=== PATIENT | male | born 1960 | race Caucasian/White ===

== ENCOUNTER 2018-02-16 22:04 | Emergency (ER) | payer OTHER ==
[~2018-02-16 22:04] MED LIST: CLINDAMYCIN HY300 MG PO; CLONAZEPAM0.5 MG PO; COLESTID1 G1 PO; ESCITALOPRAM OX10 MG PO; FLAGYL500 MG PO; FLU VACCINE 0.0.5 ML IM; LOMOTIL 0.025 M1 TAB PO; NAPROXEN500 MG PO; OCTREOTIDE 100 MCG/ML INJ; TOPAMAX50 M1 PO; TRILEPTAL300 M1 PO
[2018-02-16 22:09] VITALS: BP 129/88
--- NOTE | 2018-02-16 23:56 | ED GENERAL ADULT ---
History of Present Illness General Chief Complaint: General Adult Stated Complaint: NEEDS COLOSTOMY BAG CHANGED Source: patient Exam Limitations: no limitations Vital Signs & Intake/Output Vital Signs & Intake/Output Vital Signs Date Time Temp Pulse Resp B/P B/P Pulse O2 O2 Flow FiO2 Mean Ox Delivery Rate 02/16 2209 98.2 96 17 129/88 99 Room Air Allergies Coded Allergies: Penicillins (Severe, HIVES AND SOB 05/14/16) aspirin (From PERCODAN) (MAKES HIM FEEL EXTREMELY ITCHY. 05/13/16) oxycodone (From PERCODAN) (MAKES HIM FEEL EXTREMELY ITCHY. 05/13/16) Reconcile Medications Clonazepam 0.5 MG TABLET 1 TAB PO TID SEIZURES (Reported) Colestipol HCl (Colestid) 1 GRAM TABLET 3 TAB PO BID DIARRHEA (Reported) DIPHENOXYLATE HCL/ATROPINE (Lomotil 2.5-0.025 MG Tablet) 2.5 MG-0.025 MG TABLET 1-2 TAB PO NEEDED PRN DIARRHEA (Reported) Escitalopram Oxalate 10 MG TABLET 0.5 TAB PO DAILY DEPRESSION (Reported) Metronidazole (Flagyl) 500 MG TABLET 1 TAB PO TID BOWELS (Reported) Oxcarbazepine (Trileptal) 300 MG TABLET 2 TAB PO BID EPILEPSY (Reported) Topiramate (Topamax) 50 MG TABLET 2 TAB PO BID SEIZURES (Reported) Triage Note: PT TO ED WITH MULTIPLE COMPLAINTS. STATES JUST BROKE UP WITH WHO WAS CHANGING HIS COLOSTOMY BAG FOR HIM FOR THE PAST TWO YEARS. STATES BAG IS LEAKING AND HE CANNOT CHANGE IT. STATES, "I THINK IM HAVING A BREAKDOWN FROM IT ALL." TEARFUL AT TRIAGE. ALSO REPORTS RECENT STENT PLACEMENT AND "JUST WALKING IN MADE ME SHORT OF BREATH." DENIES CP. STATES, "I ALSO HAVE EPILEPSY" AND "I MIGHT NOT HAVE A PLACE TO STAY NOW." Triage Nurses Notes Reviewed? yes HPI: -year-old male comes in with colostomy difficulties. States that he just broke up with his who was maintaining his colostomy he is not to change it. No other complaints. Past History Travel History Traveled to [place] past 21 day No Medical History Any Pertinent Medical History? see below for history Neurological: EPILEPSY Gastrointestinal: COLOSTOMY Renal: BORN WITH ONE KIDNEY History of MRSA: No History of VRE: No History of CDIFF: No Influenza Vaccine: 03/22/14 Surgical History Surgical History: colon resection Psychosocial History Who do you live with Spouse Services at Home None What is your primary language Slovak Tobacco Use: Never used Family History Hx Contributory? No Review of Systems Review of Systems Constitutional: Reports: no symptoms, see HPI. EENTM: Reports: no symptoms. Respiratory: Reports: no symptoms. Cardiovascular: Reports: no symptoms. GI: Reports: no symptoms. Genitourinary: Reports: no symptoms. Musculoskeletal: Reports: no symptoms. Skin: Reports: no symptoms. Neurological/Psychological: Reports: no symptoms. Hematologic/Endocrine: Reports: no symptoms. Immunologic/Allergic: Reports: no symptoms. All Other Systems: Reviewed and Negative Physical Exam Physical Exam General Appearance: no apparent distress, comfortable Comments: Gen.: Well-nourished, well-developed, no acute respiratory distress. Head: Normocephalic, atraumatic. Eyes: Normal inspection bilaterally Ears: Normal inspection bilaterally Nose: Normal inspection Throat/mouth : Moist mucosa Neck: Supple, full range of motion, no goiter Heart: Regular rate and rhythm, no murmurs rubs or gallops Lungs: Clear to auscultation bilaterally with normal air entry Chest: Nontender Back: Normal range of motion Abdomen: Soft, nontender, nondistended. Stoma right lower abdomen. Extremities: Normal range of motion grossly, equal radial pulses, no cyanosis clubbing or edema Neurologic: Cranial nerves grossly intact, speech is clear Skin: warm and dry Psychiatric: Calm, cooperative, no apparent delusions or hallucinations Core Measures ACS in differential dx? No CVA/TIA Diagnosis: No Sepsis Present: No Sepsis Focused Exam Completed? No Progress Differential Diagnoses I considered the following diagnoses in my evaluation of the patient: Colostomy difficulties Plan of Care: Laboratory and imaging evaluation not indicated at this time. Pre-Hospital EKG: none Initial ED EKG: none Comments: Patient was taught colostomy care by nursing staff. Departure Departure Disposition: HOME OR SELF CARE Condition: Stable Clinical Impression Primary Impression: Colostomy care Referrals: Matthew CHOE,Laci Smiley (PCP/Family) Departure Forms: Customer Survey General Discharge Information Comments Please note that there might be incidental findings in your evaluation that are unrelated to the current emergency department visit. Please notify your primary care doctor about this emergency department visit in order to obtain and review all of the testing performed so that these incidental findings can be monitored as needed. If you had an x-ray performed, please understand that some fractures may not be seen on the initial set of x-rays. If your symptoms persist you might need a repeat set of x-rays to check for such a fracture. If you had a laceration evaluated, please understand that foreign bodies such as glass or wood may not be visible to the naked eye or on plain x-rays. If the wound becomes red, swollen, increasingly more painful or if there is any drainage from the wound, please have it reevaluated by a physician for the possibility of a retained foreign body. If you're unable to follow up as outlined in the discharge instructions please return to the emergency department. Critical Care Note Critical Care Note Critical Care Time: non-applicable
== END 2018-02-17 00:25 ==
LOC: ERH 22:04
DX: Z43.3 Encounter for attention to colostomy (principal)

== ENCOUNTER 2018-03-01 09:19 | Emergency (ER) | payer OTHER ==
[~2018-03-01] VITALS: Ht 177.8 cm; Wt 83.9 kg
[2018-03-01] MEDS ORDERED: OXCARBAZEP300 MG/52 PO ×2 (13:04→13:05)
[2018-03-01] MEDS ORDERED: WARFARIN SODIUM3 M1 PO (13:05)
[2018-03-01] MEDS ORDERED: VENLAFAXINE HCL75 M1 PO (13:06)
[2018-03-01] MEDS ORDERED: TERBINAFINE HC250 MG PO (13:06)
[2018-03-01] MEDS ORDERED: METOPROLOL TART25 M1 PO (13:07)
[2018-03-01] MEDS ORDERED: CLONAZEPAM1 M2 PO (13:10)
--- NOTE | 2018-03-01 13:40 | ED GENERAL ADULT ---
See Addendum History of Present Illness General Chief Complaint: General Adult Stated Complaint: "IM GOING TO HAVE A BREAK DOWN" Source: patient Exam Limitations: no limitations Vital Signs & Intake/Output Vital Signs & Intake/Output Vital Signs Date Time Temp Pulse Resp B/P B/P Pulse O2 O2 Flow FiO2 Mean Ox Delivery Rate 03/01 1555 98.8 64 18 120/70 97 03/01 1413 98.2 80 17 124/70 98 Room Air Room Air 03/01 1401 98 Room Air Room Air 03/01 0944 96.0 70 20 118/82 98 Room Air Allergies Coded Allergies: Penicillins (Severe, HIVES AND SOB 05/14/16) aspirin (From PERCODAN) (MAKES HIM FEEL EXTREMELY ITCHY. 05/13/16) oxycodone (From PERCODAN) (MAKES HIM FEEL EXTREMELY ITCHY. 05/13/16) Reconcile Medications Clonazepam 1 MG TABLET 0.5 TAB PO TID ANXIETY (Reported) Metoprolol Tartrate 25 MG TABLET 1 TAB PO DAILY HEART (Reported) Oxcarbazepine (OXcarbazepine) 300 MG/5 ML (60 MG/ML) ORAL.SUSP 10 ML PO DAILY SEIZURES (Reported) Oxcarbazepine (OXcarbazepine) 300 MG/5 ML (60 MG/ML) ORAL.SUSP 15 ML PO QPM SEIZURES (Reported) Terbinafine HCl 250 MG TABLET 1 TAB PO DAILY UNKNOWN (Reported) Topiramate (Topamax) 50 MG TABLET 2 TAB PO BID SEIZURES (Reported) Venlafaxine HCl (Venlafaxine HCl ER) 75 MG CAP.ER.24H 1 CAP PO DAILY MENTAL HEALTH (Reported) Warfarin Sodium 3 MG TABLET 1 TAB PO 1700 BLOOD THINNER (Reported) Triage Note: PT TO ED STATING "I'M GOING TO HAVE A NERVOUS BREAKDOWN". PT STATES HE IS HOMELESS AND NEEDS VISITING NURSES TO HELP WITH COLOSTOMY BAG. DENIES SI/HI. "I GUESS I NEED HELP". Triage Nurses Notes Reviewed? yes HPI: 57-year-old white male with previous history of colon cancer status post colostomy who presents with worsening anxiety and depression over the past 3 weeks after a divorce from his and homelessness. Patient denies any suicidal ideation, A/V hallucinations or delusional thought. He denies any drug or alcohol abuse. Patient feels that he has had trouble concentrating and sleeping due to his situational anxiety. Past History Travel History Traveled to [place] past 21 day No Medical History Any Pertinent Medical History? see below for history Neurological: EPILEPSY Gastrointestinal: COLOSTOMY Renal: BORN WITH ONE KIDNEY Cancer(s): colon/rectal cancer History of MRSA: No History of VRE: No History of CDIFF: No Surgical History Surgical History: colon resection Psychosocial History Who do you live with Spouse Services at Home None What is your primary language Kinyarwanda Tobacco Use: Never used ETOH Use: denies use Illicit Drug Use: denies illicit drug use Family History Hx Contributory? No Review of Systems Review of Systems Constitutional: Reports: see HPI. Denies: no symptoms, chills, diaphoresis, fever, malaise, weakness, unexplained weight loss. Physical Exam Physical Exam General Appearance: well developed/nourished, TEARFUL AND ANXIOUS Head: atraumatic, normal appearance Eyes: Bilateral: normal appearance, PERRL, EOMI. Ears, Nose, Throat: normal pharynx Neck: normal inspection, supple, full range of motion Respiratory: normal breath sounds, chest non-tender, no respiratory distress, quiet respiration, lungs clear Cardiovascular: regular rate/rhythm Gastrointestinal: soft, non-tender, FUNCTIONAL COLOSTOMY Back: normal inspection, normal range of motion Neurologic/Psych: awake, alert, oriented x 3, normal gait, normal mood/affect, DEPRESSED AFFECT, ANXIOUS AND TEARFUL Core Measures ACS in differential dx? No CVA/TIA Diagnosis: No Sepsis Present: No Sepsis Focused Exam Completed? No Progress Differential Diagnoses I considered the following diagnoses in my evaluation of the patient: [ Depression, anxiety, suicidal ideation, electrolyte disturbance, drug intoxication, homelessness.] Plan of Care: Orders Procedure Date/time Status ED CRISIS PSYCH CONSULT 03/01 1323 Active URINE DRUG SCREEN FOR ER ONLY 03/01 1252 Complete ACETOMINOPHEN 03/01 1252 Complete SALICYLATE 03/01 1252 Complete ETHANOL 03/01 1252 Complete COMPREHENSIVE METABOLIC PANEL 03/01 1252 Complete CBC WITHOUT DIFFERENTIAL 03/01 1252 Complete EKG 03/01 1252 Active Laboratory Tests 03/01/18 1545: Urine Opiates Screen < 100, Methadone Screen < 40, Barbiturate Screen < 60, Ur Phencyclidine Scrn < 6.00, Amphetamines Screen < 100, U Benzodiazepines Scrn < 85, Urine Cocaine Screen < 50, Urine Cannabis Screen < 5.00 03/01/18 1352: Anion Gap 9, Estimated GFR > 60, BUN/Creatinine Ratio 20.8, Glucose 81, Calcium 9.0, Total Bilirubin 0.4, AST 33, ALT 30, Alkaline Phosphatase 85, Total Protein 7.8, Albumin 4.1, Globulin 3.7, Albumin/Globulin Ratio 1.1, CBC w Diff NO MAN DIFF REQ, RBC 4.83, MCV 91.9, MCH 31.1 H, MCHC 33.9, RDW 15.6 H, MPV 8.5, Gran % 75.3 H, Lymphocytes % 15.9 L, Monocytes % 7.1, Eosinophils % 1.4, Basophils % 0.3, Absolute Granulocytes 5.1, Absolute Lymphocytes 1.1 L, Absolute Monocytes 0.5, Absolute Eosinophils 0.1, Absolute Basophils 0, Salicylates < 1.0 , Acetaminophen < 10.0 L, Serum Alcohol < 10.0 Initial ED EKG: normal axis, normal intervals, normal p-waves, normal QRS complex, normal sinus rhythm, nonspecific ST T wave chg Hand-Off Endorsed To: Rex Ambrocio MD Endorsed Time: 2228 Pending: consult (CRISIS TO RE-EVAL IN AM), other Departure Departure Disposition: STILL A PATIENT Condition: Stable Clinical Impression Primary Impression: Situational mixed anxiety and depressive disorder Referrals: Matthew CHOE,Laci Smiley (PCP/Family) Departure Forms: Customer Survey General Discharge Information Critical Care Note Critical Care Note Critical Care Time: non-applicable
[2018-03-01 14:01] LABS: ABSOLUTE BASOPHIL COUNT 0 /CUMM (0.0-0.2); ABSOLUTE EOSINOPHIL COUNT 0.1 /CUMM (0.0-0.7); ABSOLUTE GRANULOCYTE CT 5.1 /CUMM (1.4-6.5); ABSOLUTE LYMPH COUNT 1.1 /CUMM (1.2-3.4); ABSOLUTE MONOCYTE COUNT 0.5 /CUMM (0.10-0.60); BASOPHIL % 0.3 % (0.0-2.0); EOSINOPHIL % 1.4 % (0-5); GRANULOCYTE % 75.3 % (42.2-75.2); HEMATOCRIT 44.4 % (42-52); MEAN CORPUSCULAR HGB 31.1 PG (27.0-31.0); MEAN CORPUSCULAR HGB CONC 33.9 G/DL (33.0-37.0); MEAN CORPUSCULAR VOLUME 91.9 FL (80.0-94.0); MEAN PLATELET VOLUME 8.5 FL (7.4-10.4); PLATELET COUNT 228 /CUMM (130-400); RBC DISTRIBUTION WIDTH 15.6 % (11.5-14.5); RED BLOOD CELL CT 4.83 /CUMM (4.70-6.10); WHITE BLOOD CELL COUNT 6.8 /CUMM (4.8-10.8)
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
[2018-03-02 11:19] VITALS: BP 112/70
== END 2018-03-02 11:37 ==
LOC: ERH 09:19
PROVIDERS: Emergency Medicine
DX: F41.8 Other specified anxiety disorders (principal); C18.9 Malignant neoplasm of colon, unspecified
CPT/HCPCS: 80307; 93005; 93010; G0463; G0480